=== PATIENT | female | born 1955 | race Caucasian/White ===

== ENCOUNTER 2021-08-24 01:14 | Emergency (ER) | payer MEDICARE, OTHER ==
[~2021-08-24] VITALS: Ht 167.6 cm; Wt 100.0 kg
[~2021-08-24 01:14] MED LIST: ALBU2.5V8 INH; CHOL200044 PO; DOXY100T PO; ESOM40CA25 PO; FEXO1TAB31 PO; FLUT16SP2 NS; FLUT50DI IH; GARL1CAP3 PO; GLUC100018 PO; HYDR-2761 PO; HYDR-2765 PO; LEVO75TA5 PO; LEVO88TA4 PO; OMEG500C PO; PHEN37.59 PO; PRED10TA16 PO; PROP40TA PO; SIMV20TA18 PO; UBID200C7 PO; VERA180C4 PO
--- NOTE | 2021-08-24 03:13 | PHYS DOC ---
Past Medical History Past Medical History: GERD, Hypothyroid, Other Additional Past Medical Histor: lung cancer with lobectomy, radiation and chemo, remission in 2006 Past Surgical History: , Tonsillectomy, Other Additional Past Surgical Histo: left lung lobectomy, back surgery Smoking Status: Former Smoker Alcohol Use: None Drug Use: None General Adult EDM: Chief Complaint: BACK PAIN OR INJURY HPI: HPI: Patient is a 65 year old female who presents with complaint of low back pain. The patient states that her symptoms started this morning. Does note previous history of degenerative disc disease in the lower lumbar spine and has had previous history of discectomy performed 12 years ago. States that she had been doing well but suddenly started having pain earlier today. States that the pain radiates along her low back towards her thighs on both sides. Denies loss of bowel or bladder control, saddle anesthesia, or foot drop. Has been taking Tylenol at home but notes no improvement in symptoms. Denies fevers, vomiting, or abdominal pain. Due to severity of pain she came to the emergency department for further treatment. She denies any recent fall or injury. Notes pain worsens primarily with movement. Review of Systems: Review of Systems: Constitutional: Denies fever or chills. [] Eyes: Denies change in visual acuity. [] HENT: Denies nasal congestion or sore throat. [] Respiratory: Denies cough or shortness of breath. [] Cardiovascular: Denies chest pain or edema. [] GI: Denies abdominal pain, nausea, vomiting, bloody stools or diarrhea. [] : Denies dysuria. [] Musculoskeletal: Back pain. [] Integument: Denies rash. [] Neurologic: Denies headache, focal weakness or sensory changes. [] Endocrine: Denies polyuria or polydipsia. [] Heart Score: C/O Chest Pain: No Risk Factors: Risk Factors: DM, Current or recent (<one month) smoker, HTN, HLP, family history of CAD, obesity. Risk Scores: Score 0 - 3: 2.5% MACE over next 6 weeks - Discharge Home Score 4 - 6: 20.3% MACE over next 6 weeks - Admit for Clinical Observation Score 7 - 10: 72.7% MACE over next 6 weeks - Early Invasive Strategies Current Medications: Current Medications Medications (Trade) Dose Ordered Sig/Lottie Start Time Stop Time Status Last Admin Dose Admin Hydromorphone HCl (Dilaudid) 1 mg 1X ONCE 08/24/21 03:15 08/24/21 03:16 UNV Ketorolac Tromethamine (Toradol Im) 30 mg 1X ONCE 08/24/21 03:15 08/24/21 03:16 UNV Allergies: Allergies: Allergies Coded Allergies Type Severity Reaction Last Updated Verified ciprofloxacin Allergy Severe Anaphylaxis 04/17/16 No adhesive Allergy Intermediate Rash 04/17/16 No Physical Exam: PE: Constitutional: Well developed, well nourished, appears in moderate discomfort. [] HENT: Normocephalic, atraumatic, bilateral external ears normal, oropharynx moist, no oral exudates, nose normal. [] Eyes: PERRLA, EOMI, conjunctiva normal, no discharge. [] Neck: Normal range of motion, no tenderness, supple, no stridor. [] Cardiovascular:Heart rate regular rhythm, no murmur [] Lungs & Thorax: Bilateral breath sounds clear to auscultation [] Abdomen: Bowel sounds normal, soft, no tenderness, no masses, no pulsatile masses. [] Skin: Warm, dry, no erythema, no rash. [] Back: Bilateral lower lumbar paraspinous muscle tenderness to palpation, negative straight leg. [] Extremities: No tenderness, no cyanosis, no clubbing, ROM intact, no edema. [] Neurologic: Alert and oriented X 3, dorsiflexion in bilateral lower extremities is 5 out of 5, normal sensory function, no focal deficits noted. [] Current Patient Data: Labs: Not performed Vital Signs: Vital Signs Date Time Temp Pulse Resp B/P (MAP) Pulse Ox O2 Delivery O2 Flow Rate FiO2 08/24/21 01:40 99.7 99 22 121/62 (81) 100 Room Air 99.7 EKG: EKG: Not performed [] Radiology/Procedures: Radiology/Procedures: Not performed [] Course & Med Decision Making: Course & Med Decision Making Pertinent Labs and Imaging studies reviewed. (See chart for details) Patient was administered IM Toradol and Dilaudid in the emergency department. Patient notes improvement in pain symptoms at this time. Patient's examination shows no findings consistent with distal spinal cord impingement. The patient was prescribed Barco for outpatient treatment and advised follow-up with primary doctor in 3 days for reevaluation. Recommend return to the emergency department for any worsening symptoms. Patient voiced understanding and in agreement with treatment plan. [] Dragon Disclaimer: Dragon Disclaimer: This electronic medical record was generated, in whole or in part, using a voice recognition dictation system. Departure Departure Impression: Primary Impression: Acute exacerbation of chronic low back pain Disposition: HOME / SELF CARE / HOMELESS Condition: IMPROVED Referrals: JABARI MARKS MD (PCP) Patient Instructions: Back Pain, Adult Additional Instructions: Follow-up with Dr. Marks in the next 3 days for reevaluation. Return to the emergency department for any worsening symptoms. Scripts Hydrocodone Bit/Acetaminophen (HYDROCODONE-APAP 5-325 ) 1 Tab Tablet 1 TAB PO Q4HRS PRN for PAIN, #18 TAB 0 Refills Prov: DEBORAH COHEN MD 08/24/21 DEBORAH COHEN MD Aug 24, 2021 03:13
[2021-08-24] MEDS ORDERED: KETOROLAC 30 MG/ML VIAL. IM ONE (03:30)
[2021-08-24] MEDS ORDERED: HYDROmorphone 2 MG/ML INJ. IM ONE (03:30)
[2021-08-24] MEDS ORDERED: HYDR-2761 PO (04:09)
[2021-08-24 04:45] VITALS: BP 103/57
== END 2021-08-24 05:01 | disposition home or self-care (01) ==
LOC: ER 01:14
DX: G89.29 Other chronic pain (principal); M54.50 Low back pain, unspecified; K21.9 Gastro-esophageal reflux disease without esophagitis; E03.9 Hypothyroidism, unspecified; Z87.891 Personal history of nicotine dependence; Z88.1 Allergy status to other antibiotic agents; Z88.8 Allergy status to other drugs, medicaments and biological substances
CPT/HCPCS: 96372; 99285; J1170; J1885